=== PATIENT | male | born 1935 | race Caucasian/White ===

== ENCOUNTER 2018-07-31 09:05 | Emergency (ER) | payer MEDICARE ==
[2018-07-31 10:44] VITALS: BP 151/75
--- NOTE | 2018-07-31 10:58 | UC ---
Skin Complaint HPI - HPI Summary HPI Summary: Pt presents with c/o painful rash on left buttock that began days ago. - History of Current Complaint Chief Complaint: UCSkin Time Seen by Provider: 07/31/18 10:51 Stated Complaint: POSSIBLE SHINGLES Hx Obtained From: Patient Onset/Duration: Sudden Onset, Lasting Days, Still Present Skin Exposure Onset/Duration: Days Ago Timing: Constant Onset Severity: Mild Current Severity: Moderate Pain Intensity: 7 Location: Discrete Character: Pain, Painful Aggravating Factor(s): Nothing, Touch Alleviating Factor(s): Nothing Associated Signs & Symptoms: Positive: Rash - Allergy/Home Medications Allergies/Adverse Reactions: Allergies Allergy/AdvReac Type Severity Reaction Status Date / Time No Known Allergies Allergy Verified 07/31/18 10:39 Home Medications: Home Medications Amlodipine Besylate [Norvasc 10 mg tab] 10 mg PO DAILY 07/31/18 [History Confirmed 07/31/18] Aspirin 81 mg CHEW TAB* 81 mg PO DAILY 07/31/18 [History Confirmed 07/31/18] Cholecalciferol TAB* [Vitamin D TAB*] 1,000 unit PO DAILY 07/31/18 [History Confirmed 07/31/18] Hydrocodone/Acetaminophen [Hydrocodone-Acetamin 5-325 mg] 1 tab PO TID PRN 07/31 [History Confirmed 07/31/18] Naproxen [Naproxen 500 mg tab] 500 mg PO BID PRN 07/31/18 [History Confirmed 02/08] Psyllium DEBBY* [Metamucil DEBBY*] 1 pkt PO DAILY 07/31/18 [History Confirmed ] Simvastatin [Zocor 5 MG-] 10 mg PO DAILY 07/31/18 [History Confirmed 07/31/18] PMH/Surg Hx/FS Hx/Imm Hx Previously Healthy: Yes Endocrine History: Dyslipidemia Cardiovascular History: Cardiac Disease, Hypertension - Surgical History Surgical History: Yes Surgery Procedure, Year, and Place: REMOVED L5 DISC 2004 @ [facility]/ALSO LASER ON PROSTATE. BILATERAL CATARACTS. APPENDIX 194. [facility]. LEFT JAW SURGERY. SKIN TAG REMOVED RIGHT BUTTOCK - Family History Known Family History: Positive: Cardiac Disease - Social History Occupation: Retired Lives: Alone Alcohol Use: None Substance Use Type: None Smoking Status (MU): Never Smoked Tobacco Have You Smoked in the Last Year: No Review of Systems All Other Systems Reviewed And Are Negative: Yes Constitutional: Positive: Negative Skin: Positive: Rash - left buttock Eyes: Positive: Negative ENT: Positive: Negative Respiratory: Positive: Negative Cardiovascular: Positive: Negative Gastrointestinal: Positive: Negative Genitourinary: Positive: Negative Motor: Positive: Decreased ROM - right hip Neurovascular: Positive: Negative Musculoskeletal: Positive: Arthralgia, Decreased ROM - right hip- scheduled for hip surgery Neurological: Positive: Negative Psychological: Positive: Negative Is Patient Immunocompromised?: No Physical Exam Triage Information Reviewed: Yes Appearance: Well-Appearing Vital Signs: Initial Vital Signs Temp 98.3 F 07/31/18 10:39 Pulse 74 07/31/18 10:39 Resp 17 07/31/18 10:39 BP 151/75 07/31/18 10:39 Pulse Ox 98 07/31/18 10:39 Vital Signs Reviewed: Yes Eye Exam: Normal ENT Exam: Normal Dental Exam: Normal Neck exam: Normal Respiratory Exam: Normal Respiratory: Positive: No respiratory distress Musculoskeletal Exam: Normal Musculoskeletal: Positive: Strength Limited @ - at base line, ROM Limited @ - righ thip at baseline Neurological Exam: Normal Psychological Exam: Normal Skin Exam: Other - vessicular rash left mid medial buttock Course/Dx - Differential Diagnoses - Skin Complaint Differential Diagnoses: Local Allergic Reaction, Varicella Zoster - Diagnoses Provider Diagnosis: Shingles rash Discharge - Sign-Out/Discharge Documenting (check all that apply): Patient Departure All imaging exams completed and their final reports reviewed: No Studies - Discharge Plan Condition: Stable Disposition: HOME Prescriptions: Valacyclovir HCl [Valacyclovir] 1 gm PO Q8H #21 tab Patient Education Materials: Shingles (ED) Referrals: Seb Carey MD [Primary Care Provider] - If Needed - Billing Disposition and Condition Condition: STABLE Disposition: Home
== END 2018-07-31 11:06 | disposition home or self-care (01) ==
LOC: UCCORT 09:05
DX: B02.9 Zoster without complications (principal); E78.5 Hyperlipidemia, unspecified; I10 Essential (primary) hypertension; Z79.899 Other long term (current) drug therapy
CPT/HCPCS: 99212; G0463